=== PATIENT | female | born 1935 | race Two or more races ===

== ENCOUNTER → 2016-08-06 | Outpatient (CLI) | payer OTHER, MEDICAID | LOC: FIMAGING 11:32 | PROVIDERS: ATTEND Nurse Practitioner Family | DX: R05 Cough (principal); R06.2 Wheezing ==

== ENCOUNTER → 2016-08-06 | Outpatient (CLI) | payer OTHER, MEDICAID ==
[~2016-08-06] MED LIST: IOPAMIDOL (ISOVUE-300) 100 ML BTL IV ONE
[2016-08-06 15:43] LABS: CREATININE 0.9 mg/dL (0.6-1.0)
== END ==
LOC: FIMAGING 15:06
PROVIDERS: ATTEND Nurse Practitioner Family
DX: J98.4 Other disorders of lung (principal); I77.1 Stricture of artery; K44.9 Diaphragmatic hernia without obstruction or gangrene; M41.84 Other forms of scoliosis, thoracic region
CPT/HCPCS: 71260; Q9967

== ENCOUNTER → 2016-10-31 | Outpatient (CLI) | payer OTHER, MEDICAID | LOC: BHFA 16:15 | PROVIDERS: ATTEND Internal Medicine Cardiovascular Disease | DX: R06.00 Dyspnea, unspecified (principal) ==